=== PATIENT | male | born 1960 | race Caucasian/White ===

== ENCOUNTER 2018-07-25 04:23 | Emergency (ER) | END 2018-07-25 05:39 | disposition home or self-care (01) ==

== ENCOUNTER 2018-10-15 17:10 | Emergency (ER) | payer MEDICARE, OTHER ==
[~2018-10-15] VITALS: Wt 75.0 kg
[~2018-10-15 17:10] MED LIST: PHEN-538 PO
--- NOTE | 2018-10-15 19:19 | ERD ---
ER Documentation Chief Complaint Chief Complaint LEFT TESTICULAR PAIN X5 DAYS, NO SWELLING HPI 58-year-old man complaining of left testicular and scrotal pain and engorgement times 3 days, a couple days ago he was diagnosed with a urinary tract infection and his PMD prescribed levofloxacin daily which she has been using. Patient d enies penile discharge, no fevers or chills, no dysuria, no chest pain or shortness of breath ROS All systems reviewed and are negative except as per history of present illness. Medications Home Meds Active Scripts Ibuprofen* (Motrin*) 600 Mg Tab, 600 MG PO Q8 PRN for PAIN AND/OR INFLAMMATION, #30 TAB Prov:ELBA HOYT MD 10/15/18 Phenazopyridine Hcl* (Pyridium*) 200 Mg Tab, 200 MG PO TID PRN for URINARY PAIN, #6 TAB Prov:DAVID SMITH MD 07/25/18 Allergies Allergies: Coded Allergies: No Known Allergy (Unverified , 07/25/18) PMhx/Soc Diabetes mellitus, BPH, history of back surgery, history of cholecystectomy, history of UTIs History of Surgery: Yes (back surgery, cholecystectomy, nasal surgery) Anesthesia Reaction: No Hx Neurological Disorder: No Hx Respiratory Disorders: No Hx Cardiac Disorders: Yes (Hypertension) Hx Psychiatric Problems: No Hx Miscellaneous Medical Probl: Yes (Diabetes, BPH, old back injury) Hx Alcohol Use: No Hx Substance Use: No Hx Tobacco Use: No FmHx Family History: No diabetes Physical Exam Vitals Vital Signs Date Temp Pulse Resp B/P (MAP) Pulse Ox O2 O2 Flow FiO2 Time Delivery Rate 10/15/18 77 23 132/77 97 Room Air 20:33 (95) 10/15/18 83 25 136/89 98 Room Air 19:56 (105) 10/15/18 98.4 94 17 151/81 96 17:14 (104) Physical Exam Const: No acute distress, afebrile Head: Atraumatic Eyes: Normal Conjunctiva ENT: Normal External Ears, Nose and Mouth. Neck: Full range of motion. No meningismus. Resp: Clear to auscultation bilaterally Cardio: Regular rate and rhythm, no murmurs Abd: Soft, non tender, non distended. Normal bowel sounds Skin: No petechiae or rashes Back: No midline or flank tenderness Ext: No cyanosis, or edema Neur: Awake and alert x3, no focal deficits or facial asymmetry Psych: Normal Mood and Affect Result Diagram: 10/15/18193210/15/181932 Results 24 hrs Laboratory Tests Test 10/15/18 19:33 White Blood Count 6.9 10^3/ul Red Blood Count 5.37 10^6/ul Hemoglobin 15.5 g/dl Hematocrit 47.6 % Mean Corpuscular Volume 88.6 fl Mean Corpuscular Hemoglobin 28.9 pg Mean Corpuscular Hemoglobin Concent 32.6 g/dl Red Cell Distribution Width 13.2 % Platelet Count 230 10^3/UL Mean Platelet Volume 10.4 fl Immature Granulocytes % 0.300 % Neutrophils % 53.6 % Lymphocytes % 33.7 % Monocytes % 9.3 % Eosinophils % 2.5 % Basophils % 0.6 % Nucleated Red Blood Cells % 0.0 /100WBC Immature Granulocytes # 0.020 10^3/ul Neutrophils # 3.7 10^3/ul Lymphocytes # 2.3 10^3/ul Monocytes # 0.6 10^3/ul Eosinophils # 0.2 10^3/ul Basophils # 0.0 10^3/ul Nucleated Red Blood Cells # 0.0 10^3/ul Urine Color STRAW Urine Clarity CLEAR Urine pH 7.0 Urine Specific [place] 1.028 Urine Ketones TRACE mg/dL Urine Nitrite NEGATIVE mg/dL Urine Bilirubin NEGATIVE mg/dL Urine Urobilinogen NEGATIVE mg/dL Urine Leukocyte Esterase NEGATIVE Deanna/ul Urine Hemoglobin NEGATIVE mg/dL Urine Glucose 3+ mg/dL Urine Total Protein NEGATIVE mg/dl Sodium Level 142 mmol/L Potassium Level 4.4 mmol/L Chloride Level 104 mmol/L Carbon Dioxide Level 28 mmol/L Anion Gap 10 Blood Urea Nitrogen 18 mg/dl Creatinine 0.63 mg/dl Est Glomerular Filtrat Rate mL/min > 60 mL/min Glucose Level 155 mg/dl Calcium Level 9.8 mg/dl Procedures/MDM Scrotum examination is within normal limits, scrotal vermiform was palpated easily on the left side, testicles are normal in size, shape, lie. Cremasteric reflex is intact bilaterally Ultrasound of the scrotum reveals normal testicles, no torsion, left hydrocele noted. Please refer to radiologist dictation for full report. Urinalysis is negative for infection. CBC and electrolytes were normal. Patient is currently being treated successfully for urinary tract infection with levofloxacin, he has a left-sided hydrocele and no signs or symptoms of epididymitis or testicular torsion. Workup in the ER was negative and he will be discharged to follow-up with his urologist Departure Diagnosis: Primary Impression: UTI (urinary tract infection) Urinary tract infection type: acute cystitis Hematuria presence: without hematuria Qualified Codes: N30.00 - Acute cystitis without hematuria Additional Impression: Hydrocele Hydrocele type: unspecified Qualified Codes: N43.3 - Hydrocele, unspecified Condition: Good ELBA HOYT MD Oct 15, 2018 19:19
[2018-10-15] MEDS ORDERED: IBUP-1542 PO (20:19)
[2018-10-15 20:33] VITALS: BP 132/77; PULSE 77; RESP 23
== END 2018-10-15 20:36 | disposition home or self-care (01) ==
LOC: E/R 17:10
DX: N43.3 Hydrocele, unspecified (principal); N39.0 Urinary tract infection, site not specified; E11.9 Type 2 diabetes mellitus without complications; I10 Essential (primary) hypertension
CPT/HCPCS: 36415; 76870; 80048; 81003; 85025; 87086

== ENCOUNTER 2019-01-03 15:09 | Emergency (ER) | payer MEDICARE, OTHER ==
[~2019-01-03] VITALS: Ht 154.9 cm; Wt 76.4 kg
[~2019-01-03 15:09] MED LIST changes: +IBUP-1542 PO
[2019-01-03 15:15] VITALS: Ht 154.9 cm; Wt 76.4 kg
--- NOTE | 2019-01-03 16:40 | ERD ---
ER Documentation Chief Complaint Chief Complaint sent fr pamela galeano, BS 150 @ clinic, on insulin & tabs ROS All systems reviewed and are negative except as per history of present illness. Medications Home Meds Active Scripts Ibuprofen* (Motrin*) 600 Mg Tab, 600 MG PO Q8 PRN for PAIN AND/OR INFLAMMATION, #30 TAB Prov:ELBA HOYT MD 10/15/18 Phenazopyridine Hcl* (Pyridium*) 200 Mg Tab, 200 MG PO TID PRN for URINARY PAIN, #6 TAB Prov:DAVID SMITH MD 07/25/18 Allergies Allergies: Coded Allergies: No Known Allergy (Unverified , 07/25/18) PMhx/Soc History of Surgery: Yes (back surgery, cholecystectomy, nasal surgery) Anesthesia Reaction: No Hx Neurological Disorder: No Hx Respiratory Disorders: No Hx Cardiac Disorders: Yes (Hypertension) Hx Psychiatric Problems: No Hx Miscellaneous Medical Probl: Yes (Diabetes, BPH, old back injury) Hx Alcohol Use: No Hx Substance Use: No Hx Tobacco Use: No Physical Exam Vitals Vital Signs Date Temp Pulse Resp B/P (MAP) Pulse Ox O2 O2 Flow FiO2 Time Delivery Rate 01/03/19 97.7 102 18 129/64 97 15:15 (85) Physical Exam Const: No acute distress Head: Atraumatic Eyes: Normal Conjunctiva ENT: Normal External Ears, Nose and Mouth. Neck: Full range of motion. No meningismus. Resp: Clear to auscultation bilaterally Cardio: Regular rate and rhythm, no murmurs Abd: Soft, non tender, non distended. Normal bowel sounds Skin: No petechiae or rashes Back: No midline or flank tenderness Ext: No cyanosis, or edema Neur: Awake and alert Psych: Normal Mood and Affect Results 24 hrs Laboratory Tests Test 01/03/19 15:20 Bedside Glucose 160 mg/dL DAVID ESCOBAR MD Jan 03, 2019 16:40
[2019-01-03] MEDS ORDERED: SOD CHLORIDE 0.9% 760 ML IV ONE (17:00)
[2019-01-03] MEDS ORDERED: GLIP10TA14 PO (17:05)
[2019-01-03] MEDS ORDERED: EMPA10TA PO (17:06)
[2019-01-03] MEDS ORDERED: LISI-313 PO (17:06)
[2019-01-03] MEDS ORDERED: TAMS-14 PO (17:06)
[2019-01-03] MEDS ORDERED: DAPA10TA PO (17:07)
[2019-01-03] MEDS ORDERED: METF100010 PO (17:07)
[2019-01-03] MEDS ORDERED: ATOR10TA65 PO (17:07)
[2019-01-03] MEDS ORDERED: LANT3I SC (17:08)
[2019-01-03] MEDS ORDERED: NAPR-688 PO (17:09)
[2019-01-03] MEDS ORDERED: COLC0.6T6 PO (17:09)
[2019-01-03] MEDS ORDERED: OMEP20CA16 PO (17:09)
[2019-01-03 18:21] VITALS: BP 141/81; PULSE 78; RESP 18
[2019-01-03] MEDS ORDERED: ACETAMINOPHEN 325 MG TAB PO STA (19:25)
[2019-01-03] MEDS ORDERED: ACETAMINOPHEN 325 MG TAB ONE (19:27)
== END 2019-01-03 22:04 | disposition home or self-care (01) ==
LOC: E/R 15:09
DX: D58.8 Other specified hereditary hemolytic anemias (principal); I10 Essential (primary) hypertension; Z79.4 Long term (current) use of insulin
CPT/HCPCS: 36415; 80048; 81003; 82803; 82962; 83735; 84100; 85025; 99284; J7030

== ENCOUNTER 2019-02-06 16:25 | Emergency (ER) | payer MEDICARE, OTHER ==
[~2019-02-06] VITALS: Ht 165.1 cm; Wt 76.7 kg
[~2019-02-06 16:25] MED LIST changes: +ATOR10TA65 PO; +COLC0.6T6 PO; +DAPA10TA PO; +EMPA10TA PO; +GLIP10TA14 PO; -IBUP-1542 PO; +LANT3I SC; +LISI-313 PO; +METF100010 PO; +NAPR-688 PO; +OMEP20CA16 PO; -PHEN-538 PO; +TAMS-14 PO
[2019-02-06 16:33] VITALS: Ht 165.1 cm; Wt 76.7 kg
[2019-02-06] MEDS ORDERED: SOD CHLORIDE 0.9% 500 ML IV STA (16:47)
[2019-02-06] MEDS ORDERED: KETOROLAC 30 MG INJ IV STA (16:47)
--- NOTE | 2019-02-06 17:33 | ERD ---
ER Documentation Chief Complaint Chief Complaint c/o right flank pain x3 days. Denies hematuria, no dysuria HPI 58-year-old gentleman who presents to the emergency room with 3 days of right- sided flank pain. He describes no hematuria no dysuria urgency or frequency. The pain is constant, not colicky. He does report a remote history of kidney stone that required surgical intervention. He states this feels somewhat similar but also somewhat different. He denies any fevers or chills, no chest pain, no pleuritic pain. Translation services were utilized during this patient's encounter Language: Estonian Source: In person ROS All systems reviewed and are negative except as per history of present illness. Medications Home Meds Active Scripts Ibuprofen* (Motrin*) 800 Mg Tab, 800 MG PO Q6H PRN for PAIN AND OR ELEVATED TEMP, #30 TAB Prov:NASIR PITTS MD 02/06/19 Reported Medications Repaglinide* (Prandin*) 1 Mg Tablet, 1 MG PO AC MEALS, TAB 02/06/19 Empagliflozin (Jardiance) 10 Mg Tablet, 10 MG PO DAILY, TAB 02/06/19 Finasteride* (Finasteride*) 5 Mg Tablet, 5 MG PO DAILY, TAB 02/06/19 Clarithromycin* (Clarithromycin*) 500 Mg Tablet, 1000 MG PO BID, TAB STARTED 7-2 FOR 14 DAYS 02/06/19 Amoxicillin* (Amoxicillin*) 500 Mg Cap, 1000 MG PO BID, #20 CAP FOR 14 DAYS STARTED 7-2-19 02/06/19 Omeprazole* (Omeprazole*) 20 Mg Capsule.dr, 20 MG PO DAILY, #30 CAP 01/03/19 Insulin Glargine* (Lantus*) 100 Unit/Ml Soln, 30 UNIT SC BID, #1 VIAL 01/03/19 Atorvastatin Calcium (Atorvastatin Calcium) 10 Mg Tablet, 10 MG PO QHS, #30 TAB 01/03/19 Metformin Hcl* (Metformin Hcl*) 1,000 Mg Tablet, 1000 MG PO WITH BREAKFAST DINNE, #60 TAB 01/03/19 Tamsulosin Hcl* (Flomax*) 0.4 Mg Cap.er.24h, 0.4 MG PO HS, CAP 01/03/19 Lisinopril* (Lisinopril*) 5 Mg Tablet, 5 MG PO DAILY, #30 TAB 01/03/19 Glipizide* (Glipizide*) 10 Mg Tablet, 10 MG PO AC BREAKFAST DINNER, TAB 01/03/19 Discontinued Reported Medications Naproxen* (Naproxen*) 500 Mg Tablet, 500 MG PO BID, TAB 01/03/19 Colchicine* (Colcrys*) 0.6 Mg Tablet, 0.6 MG PO BID, TAB 01/03/19 Dapagliflozin Propanediol (Farxiga) 10 Mg Tablet, 10 MG PO DAILY, #30 TAB 01/03/19 Empagliflozin (Jardiance) 10 Mg Tablet, 10 MG PO DAILY, TAB 01/03/19 Allergies Allergies: Coded Allergies: No Known Allergy (Unverified , 02/06/19) PMhx/Soc History of Surgery: Yes (back surgery, cholecystectomy, nasal surgery) Anesthesia Reaction: No Hx Neurological Disorder: No Hx Respiratory Disorders: No Hx Cardiac Disorders: Yes (Hypertension) Hx Psychiatric Problems: No Hx Miscellaneous Medical Probl: Yes (Diabetes, BPH, old back injury) Hx Alcohol Use: No Hx Substance Use: No Hx Tobacco Use: No Smoking Status: Never smoker FmHx Family History: No diabetes Physical Exam Vitals Vital Signs Date Temp Pulse Resp B/P (MAP) Pulse Ox O2 O2 Flow FiO2 Time Delivery Rate 02/06/19 97.6 78 20 125/73 95 Room Air 18:04 (90) 02/06/19 97.6 92 20 135/72 95 Room Air 17:00 (93) 02/06/19 97.6 86 20 156/62 98 16:33 (93) Physical Exam General: Well developed, well nourished, no acute distress Head: Normocephalic, atraumatic. Eyes: Pupils equally reactive, EOM intact ENT: Moist mucous membranes Neck: Supple, no lymphadenopathy Respiratory: Lungs clear bilaterally, no distress Cardiovascular: RRR, no murmurs, rubs, or gallops Abdominal: Soft, non-tender, non-distended, no peritoneal signs Back: Very reproducible thoracolumbar paraspinal soft tissue tenderness : Deferred MSK: No edema, no unilateral swelling, 5/5 strength Neurologic: Alert and oriented, moving all extremities, normal speech, no focal weakness, no cerebellar signs Skin: No rash Psych: Normal mood Result Diagram: 02/06/19 1655 02/06/19 1739 Results 24 hrs Laboratory Tests Test 02/06/19 16:55 02/06/19 17:39 02/06/19 17:55 White Blood Count 8.1 10^3/ul Red Blood Count 5.47 10^6/ul Hemoglobin 16.2 g/dl Hematocrit 47.3 % Mean Corpuscular Volume 86.5 fl Mean Corpuscular Hemoglobin 29.6 pg Mean Corpuscular 34.2 g/dl Hemoglobin Concent Red Cell Distribution Width 13.6 % Platelet Count 220 10^3/UL Mean Platelet Volume 10.7 fl Immature Granulocytes % 0.400 % Neutrophils % 53.4 % Lymphocytes % 34.7 % Monocytes % 7.6 % Eosinophils % 3.2 % Basophils % 0.7 % Nucleated Red Blood Cells % 0.0 /100WBC Immature Granulocytes # 0.030 10^3/ul Neutrophils # 4.3 10^3/ul Lymphocytes # 2.8 10^3/ul Monocytes # 0.6 10^3/ul Eosinophils # 0.3 10^3/ul Basophils # 0.1 10^3/ul Nucleated Red Blood Cells # 0.0 10^3/ul Sodium Level 139 mmol/L Potassium Level 4.0 mmol/L Chloride Level 108 mmol/L Carbon Dioxide Level 22 mmol/L Anion Gap 9 Blood Urea Nitrogen 14 mg/dl Creatinine 0.59 mg/dl Est Glomerular Filtrat > 60 mL/min Rate mL/min Glucose Level 247 mg/dl Calcium Level 8.6 mg/dl Total Bilirubin 0.9 mg/dl Direct Bilirubin 0.00 mg/dl Indirect Bilirubin 0.9 mg/dl Aspartate Amino 32 IU/L Transf (AST/SGOT) Alanine 52 IU/L Aminotransferase (ALT/SGPT) Alkaline Phosphatase 60 IU/L Total Protein 6.8 g/dl Albumin 3.7 g/dl Globulin 3.10 g/dl Albumin/Globulin Ratio 1.19 Lipase 335 U/L Urine Color STRAW Urine Clarity CLEAR Urine pH 6.0 Urine Specific [place] 1.026 Urine Ketones TRACE mg/dL Urine Nitrite NEGATIVE mg/dL Urine Bilirubin NEGATIVE mg/dL Urine Urobilinogen NEGATIVE mg/dL Urine Leukocyte Esterase NEGATIVE Deanna/ul Urine Hemoglobin NEGATIVE mg/dL Urine Glucose 3+ mg/dL Urine Total Protein NEGATIVE mg/dl Current Medications Medications Dose Sig/Frank Start Time Status Last (Trade) Ordered Route PRN Stop Time Admin Dose Reason Admin Sodium 500 ml @ Q1H STAT 02/06/19 DC 02/06/19 Chloride 500 mls/hr IV 16:47 02/06/19 16:53 17:46 Ketorolac 30 mg ONCE STAT 02/06/19 DC 02/06/19 Tromethamine IV 16:47 02/06/19 16:53 (Toradol) 16:49 Procedures/MDM EKG, MONITORS, & DIAGNOSTIC IMAGING: CT a/p IMPRESSION: No evidence of obstructive uropathy, diverticulitis or appendicitis. 3 mm nonobstructing right renal calculus. Fatty liver. Cholecystectomy. Postsurgical changes thoracic and lumbar spine as above. LAB INTERPRETATION: I reviewed the laboratory testing and it shows no evidence of acute process MEDICAL DECISION MAKING: The patient's clinical exam is more suggestive of musculoskeletal etiology. However given his reported history of complex and complicated ureteral stone CT imaging of the abdomen pelvis would be reasonable. No signs or symptoms c oncerning for dissection or pulmonary process. ER COURSE: * Patient given IV fluids and nonsteroidal anti-inflammatory. Laboratory testing and diagnostic imaging unrevealing. The patient's kidney stone is within the kidney itself and unlikely causing his symptoms. * A trial of NSAIDs would be reasonable. Return precautions were discussed and understood. CONSULTATION: None DISPOSITION PLAN: The patient does not have an identifiable emergent medical condition that warrants inpatient hospitalization at this time. The patient is deemed safe for discharge with outpatient follow-up. We discussed follow up with the patient's primary care doctor within 24 to 48 hours as needed. We also discussed return to the emergency room for worsening symptoms or worsening condition. Outpatient referral: None required Discharge Medications: Motrin Departure Diagnosis: Primary Impression: Right flank pain Additional Impression: Muscle pain Condition: Stable NASIR PITTS MD Feb 06, 2019 17:33
[2019-02-06] MEDS ORDERED: IBUP800T48 PO (17:34)
[2019-02-06] MEDS ORDERED: AMOX500C2 PO (17:58)
[2019-02-06] MEDS ORDERED: CLAR500T PO (17:59)
[2019-02-06] MEDS ORDERED: EMPA10TA PO (18:00)
[2019-02-06] MEDS ORDERED: FINA5TAB4 PO (18:00)
[2019-02-06] MEDS ORDERED: REPA1TAB14 PO (18:00)
[2019-02-06 19:00] VITALS: BP 135/82; PULSE 75; RESP 16
== END 2019-02-06 19:01 | disposition home or self-care (01) ==
LOC: E/R 16:25
DX: M79.10 Myalgia, unspecified site (principal); E11.9 Type 2 diabetes mellitus without complications; I10 Essential (primary) hypertension; Z79.4 Long term (current) use of insulin
CPT/HCPCS: 36415; 74176; 80053; 81003; 83690; 85025; 87086; 96374; 99285; J1885; J7040

== ENCOUNTER 2019-06-07 14:13 | Emergency (ER) | payer MEDICARE, OTHER ==
[~2019-06-07] VITALS: Wt 79.0 kg
[~2019-06-07 14:13] MED LIST changes: +AMOX500C2 PO; +CLAR500T PO; -COLC0.6T6 PO; -DAPA10TA PO; +FINA5TAB4 PO; +HYDR-4011 PO; +IBUP-1542 PO; +IBUP800T48 PO; -NAPR-688 PO; -OMEP20CA16 PO; +OMEP20CA17 PO; +REPA1TAB14 PO
[2019-06-07 14:15] VITALS: BP 119/69; PULSE 69; RESP 18
== END 2019-06-07 17:42 | disposition home or self-care (01) ==
LOC: FTE 14:13
DX: R10.9 Unspecified abdominal pain (principal); I10 Essential (primary) hypertension; E11.9 Type 2 diabetes mellitus without complications; Z79.4 Long term (current) use of insulin
CPT/HCPCS: 80053; 81003; 83690; 85025; 99283